=== PATIENT | male | born 1985 | race Caucasian/White ===

== ENCOUNTER 2017-04-27 02:43 | Emergency (ER) | payer SELFPAY ==
[~2017-04-27] VITALS: Ht 177.8 cm; Wt 80.7 kg
--- NOTE | 2017-04-27 03:30 | NUR ---
Pt states his jaw is dislocated again, unable to open or close it, pain at hinges of mandible, 8/10. No other complaints, minor distress noted. Inserted IV left Hand, 20 g.
[2017-04-27] MEDS ORDERED: PROPOFOL 200 MG/20 ML BOTTLE ONE ×2 (03:42→04:03)
--- NOTE | 2017-04-27 04:10 | NUR ---
Moderate sedation done to reduce jaw dislocation. Notes filled out manually during procedure.
[2017-04-27] MEDS: PROPOFOL 1,000 MG/100 ML BOTTLE IV ONE (05:13)
[2017-04-27] MEDS ORDERED: IV NORMAL SALINE 1000 ML BAG IV ONE (06:15)
[2017-04-27] MEDS ORDERED: PROPOFOL 1,000 MG/100 ML BOTTLE IV ONE (06:30)
--- NOTE | 2017-04-27 06:50 | NUR ---
Gave pt d/c instructions, verbalized understanding.
[2017-04-27 07:03] VITALS: BP 119/80
== END 2017-04-27 07:05 | disposition home or self-care (01) ==
LOC: ER 02:50
DX: S03.00XA Dislocation of jaw, unspecified side, initial encounter (principal); X58.XXXA Exposure to other specified factors, initial encounter; Y93.89 Activity, other specified; Y92.9 Unspecified place or not applicable; Y99.9 Unspecified external cause status
CPT/HCPCS: A4663; J3490; J7030

== ENCOUNTER 2025-05-22 15:21 | Emergency (ER) | payer MEDICAID, OTHER ==
[~2025-05-22] VITALS: Ht 177.8 cm; Wt 81.6 kg
[2025-05-22] MEDS: PROPOFOL 200 MG/20 ML BOTTLE IV ONE (19:00)
[2025-05-22 22:19] LABS: PLATELET COUNT (AUTO) 379 K/uL (152-348); RED BLOOD CELL COUNT(AUTO) 5.15 MIL/uL (4.06-5.63); RED CELL DISTRIBUTION WIDTH 19.6 % (12.1-16.2); WHITE BLOOD COUNT (AUTO) 8.2 K/uL (3.6-10.2)
[2025-05-22 22:30] LABS: CREATININE 1.2 mg/dL (0.6-1.3); SODIUM SERUM 145.0 mmol/L (136-145); UREA NITROGEN, BLOOD 11.0 mg/dL (7-18)
[2025-05-22 22:31] LABS: ETHANOL 135.0 MG/DL (0-10)
[2025-05-22 22:36] LABS: ASPARTATE AMINOTRANSFERASE 28.0 U/L (15-37); TOTAL PROTEIN, SERUM 7.2 g/dL (6.4-8.2)
[2025-05-22 23:30] LABS: EOSINOPHILS % (MANUAL) 3 % (0-8); LYMPHOCYTES % (MANUAL) 19 % (20-40); MONOCYTES % (MANUAL) 6 % (2-10); NEUTROPHILS % (MANUAL) 72 % (42-75); PLATELET ESTIMATE ADEQUATE
[2025-05-23] MEDS ORDERED: PROPOFOL 200 MG/20 ML BOTTLE ONE (00:04)
[2025-05-23] MEDS: PROPOFOL 1,000 MG/100 ML BOTTLE IV ONE (00:28)
[2025-05-23 02:40] VITALS: BP 124/89; TEMP 98.1; O2SAT 99
== END 2025-05-23 02:34 | disposition home or self-care (01) ==
LOC: ER 15:21
DX: S03.03XA Dislocation of jaw, bilateral, initial encounter (principal); Z88.7 Allergy status to serum and vaccine; Z86.59 Personal history of other mental and behavioral disorders; Z60.2 Problems related to living alone; X58.XXXA Exposure to other specified factors, initial encounter; Y93.89 Activity, other specified; Y92.89 Other specified places as the place of occurrence of the external cause; Y99.8 Other external cause status
CPT/HCPCS: 36415; 70030-TC; 70110; 70486; 85610; A4606; A4663; G0480; G0500; J3490